=== PATIENT | female | born 1935 | race Caucasian/White ===

== ENCOUNTER 2017-10-05 10:03 | Emergency (ER) | payer MEDICARE, OTHER ==
--- NOTE | 2017-10-05 11:35 | ED Physician Documentation ---
History of Present Illness - Stated complaint Stated Complaint: SORE ON ANKLE - Chief complaint Chief Complaint: General - History obtained from History obtained from: Patient - History of Present Illness Timing: How many weeks ago (1) - Additonal information Additional information: The patient is an 81-year-old female who presents with a small sore on the lateral aspect of her left ankle. She first noticed it about 1 week ago and reports that it is better now than it was yesterday. She denies any traumatic injury. She is concerned because she had a spider bite in the past that became infected. She recently moved here and does not yet have a local primary physician. Review of Systems Constitutional: denies: Fever Skin: denies: Rash Musculoskeletal: reports: Extremity swelling (Slight swelling of the left ankle , which has improved.). 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 HEENT: Tonsil/Adenoidectomy - Present Medications Home Medications: Ambulatory Orders Medication Instructions Recorded Confirmed Digestive 8/L.acidoph/Pectin 10/05/17 10/05/17 [Digestive Enzymes Tablet] Thyroid,Pork [[place] Thyroid] 10/05/17 - Allergies Allergies/Adverse Reactions: Allergies Allergy/AdvReac Type Severity Reaction Status Date / Time sulfur dioxide Allergy Rash Verified 10/05/17 10:29 - Social History Does the pt smoke?: No PD ED PE NORMAL - Vitals Vital signs reviewed: Yes (Normal) - General General: Alert and oriented X 3, Well developed/nourished - HEENT HEENT: Atraumatic - Respiratory Respiratory: No respiratory distress - Derm Derm: No rash - Extremities Extremities: No edema, No calf tenderness / cord, Other (There is superficial abrasion at the lateral aspect of the left ankle, with no surrounding warmth or erythema. There is no significant tenderness to palpation. She has full range of motion of the ankle without tenderness. Distal neurovascular is intact.) - Neuro Neuro: Alert and oriented X 3, No motor deficit, No sensory deficit Results - Vitals Vitals: Oxygen O2 Source Room air PD MEDICAL DECISION MAKING - ED course Complexity details: considered differential, d/w patient ED course: Patient's presentation is most consistent with abrasion of the skin of the left lateral ankle. There is no evidence of cellulitis. The abrasion appears consistent with having scratched at the ankle. I do not think imaging studies are clinically indicated. Treatment in the emergency department included application of bacitracin antibiotic ointment topically, covered by a Band-Aid. I discussed with her the expected course of healing, symptomatic treatment, as well as potentially worrisome signs or symptoms that should prompt reevaluation. Departure - Departure Disposition: 01 Home, Self Care Clinical Impression: Excoriation Condition: Stable Instructions: ED Abrasion Comments: Apply antibiotic ointment to the sore on your ankle twice daily. Keep your left leg elevated as much of the time as possible. Follow-up with primary physician within 2 weeks if possible. Call to schedule an appointment. Return to the emergency department if you develop increasing redness, swelling, pain, or otherwise worsening symptoms. Discharge Date/Time: 10/05/17 11:39
[2017-10-05] MEDS ORDERED: BACITRACIN OINT TOP ONE (11:40)
[2017-10-05 11:42] VITALS: BP 127/77
== END 2017-10-05 11:39 | disposition home or self-care (01) ==
LOC: ED 10:03
DX: S90.512A Abrasion, left ankle, initial encounter (principal); X58.XXXA Exposure to other specified factors, initial encounter
CPT/HCPCS: 99283; A9270

== ENCOUNTER 2018-07-20 14:59 | Emergency (ER) | payer MEDICARE, OTHER ==
[2018-07-20 15:07] VITALS: BP 159/80
[2018-07-20] MEDS ORDERED: BACITRACIN OINT TOP STA (15:17)
--- NOTE | 2018-07-20 15:21 | ED Physician Documentation ---
PD HPI SKIN - Stated complaint Stated Complaint: SORE ON LEG - Chief complaint Chief Complaint: General - History obtained from History obtained from: Patient - History of Present Illness Timing - onset: How many days ago (4) Timing - duration: Days (4) Timing - details: Still present Location: LLE Quality / character: Itchy, Other (open sore) Contributing factors: Unknown Similar symptoms before: Has not had sx before - Additional information Additional information: The patient is an 82-year-old female who has had a sore on the calf of her left leg for the past 4 days. She is concerned because there has been no healing of the wound during that time. She denies any specific injury, but thinks it may be due to a spider bite or an insect sting. She does not have any pets. She is a recent arrival to [facility], and does not have a local physician. 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 HEENT: Tonsil/Adenoidectomy - Present Medications Home Medications: Ambulatory Orders Medication Instructions Recorded Confirmed Digestive 8/L.acidoph/Pectin 10/05/17 10/05/17 [Digestive Enzymes Tablet] Thyroid,Pork [[place] Thyroid] 10/05/17 - Allergies Allergies/Adverse Reactions: Allergies Allergy/AdvReac Type Severity Reaction Status Date / Time sulfur dioxide Allergy Rash Verified 07/20/18 15:04 - Social History Does the pt smoke?: No Smoking Status: Never smoker Does the pt drink ETOH?: No Does the pt have substance abuse?: No - Immunizations Immunizations are current?: No Immunizations: TDAP >10years/unknown - POLST Patient has POLST: No PD ED PE NORMAL - Vitals Vital signs reviewed: Yes (Initially hypertensive.) - General General: Alert and oriented X 3, Well developed/nourished - HEENT HEENT: Atraumatic - Respiratory Respiratory: No respiratory distress - Derm Derm: No rash - Extremities Extremities: No edema, Other (There is a nearly 1 cm diameter wound on the posterior aspect of the left calf. It is a superficial wound, consistent with spider bite. There is no tissue necrosis, and no significant surrounding erythema.) - Neuro Neuro: Alert and oriented X 3, No motor deficit, No sensory deficit Results - Vitals Vitals: Oxygen O2 Source Room air PD MEDICAL DECISION MAKING - ED course Complexity details: considered differential, d/w patient, d/w family ED course: Although it is not certain, the most likely etiology of the sore on the patient's calf is spider bite. There is no evidence of cellulitis, but rather just a localized reaction. I discussed with her and her the expected course of injury, topical antibiotic ointment and symptomatic treatment, as well as potentially worrisome signs or symptoms that should prompt reevaluation in the emergency department. Departure - Departure Disposition: 01 Home, Self Care Clinical Impression: Spider bite wound Qualifiers: Encounter type: initial encounter Injury intent: accidental or unintentional Qualified Code(s): T63.301A - Toxic effect of unspecified spider venom, accidental (unintentional), initial encounter Condition: Stable Instructions: ED Bite Spider Non Poisonous Comments: Apply antibiotic ointment to the wound twice daily, and cover the wound with a Band-Aid. Keep your left leg elevated as much the time as possible. Return to the emergency department if you develop increasing redness, swelling, pain, or otherwise worsening symptoms. Discharge Date/Time: 07/20/18 15:38
[2018-07-20] MEDS ORDERED: BACITRACIN OINT TOP ONE (15:22)
== END 2018-07-20 15:38 | disposition home or self-care (01) ==
LOC: ED 14:59
DX: T63.301A Toxic effect of unspecified spider venom, accidental (unintentional), initial encounter (principal); E03.9 Hypothyroidism, unspecified
CPT/HCPCS: 99282; A9270

== ENCOUNTER 2018-09-11 06:37 | Emergency (ER) | payer MEDICARE, OTHER ==
[2018-09-11 07:01] LABS: BASOPHILS # (AUTO) 0.1 10^3/uL (0.0-0.1); BASOPHILS % (AUTO) 0.4 %; EOSINOPHILS # (AUTO) 0.2 10^3/uL (0.0-0.7); EOSINOPHILS % (AUTO) 1.9 %; HGB - HEMOGLOBIN 15.1 g/dL (12.0-16.0); LYMPHOCYTES % (AUTO) 7.6 %; MEAN CORPUSCULAR HEMOGLOBIN 30.3 pg (27.0-31.0); MEAN CORPUSCULAR HGB CONC 34.1 g/dL (32.0-36.0); MEAN CORPUSCULAR VOLUME 88.7 fL (81.0-99.0); MEAN PLATELET VOLUME 9.7 fL (7.9-10.8); MONOCYTES # (AUTO) 0.6 10^3/uL (0.0-1.0); MONOCYTES % (AUTO) 4.9 %; NEUTROPHILS # (AUTO) 10.6 10^3/uL (1.5-6.6); NEUTROPHILS % (AUTO) 85.2 %; PLT - PLATELET COUNT 221 10^3/uL (130-450); RED BLOOD COUNT 4.99 10^6/uL (4.20-5.40); RED CELL DISTRIBUTION WIDTH 14.7 % (12.0-15.0); WHITE BLOOD COUNT 12.5 x10^3/uL (4.8-10.8)
--- NOTE | 2018-09-11 07:09 | ED Physician Documentation ---
PD HPI ABD PAIN - Stated complaint Stated Complaint: ABD PX - Chief complaint Chief Complaint: Abd Pain - History obtained from History obtained from: Patient - History of Present Illness Timing - onset: Yesterday Timing - duration: Days (1) Timing - details: Abrupt onset, Still present Quality: Cramping, Aching, Fullness/distended, Pain Location: All over / everywhere (more to the lower and mid abdomen.) Radiation: No: Chest, Lower back Associated symptoms: Nausea, Constipation (states no BM for 2-3 days but was regular prior to that.). No: Fever, Vomiting, Diarrhea Similar symptoms before: No diagnosis (sparse episodes 2-3 times in the past lasting few hours or a day. This feels worse. Had an episode few years ago treated in ER and was told had a "twist" but improved with meds. Prior surgeries of CCY and hysterectomy.) Recently seen: Not recently seen Review of Systems Constitutional: denies: Fever, Chills, Myalgias Nose: denies: Rhinorrhea / runny nose, Congestion Throat: denies: Sore throat Respiratory: denies: Cough GI: reports: Abdominal Pain, Abdominal Swelling, Nausea, Constipation. denies: Vomiting, Diarrhea : denies: Dysuria, Frequency Musculoskeletal: denies: Neck pain, Back pain Neurologic: reports: Generalized weakness. 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 HEENT: Tonsil/Adenoidectomy - Present Medications Home Medications: Ambulatory Orders Medication Instructions Recorded Confirmed Digestive 8/L.acidoph/Pectin 10/05/17 10/05/17 [Digestive Enzymes Tablet] Thyroid,Pork [[place] Thyroid] 10/05/17 Hydrocodone/Acetaminophen [[place] 1 each PO Q6H PRN #15 tablet 09/11/18 5-325 Tablet] Naproxen 375 mg PO BID #20 tablet 09/11/18 Ondansetron Odt [Zofran] 4 mg TL Q6H PRN #10 tablet 09/11/18 Polyethylene Glycol 3350 [Miralax] 17 gm PO DAILY PRN #1 bottle 09/11/18 - Allergies Allergies/Adverse Reactions: Allergies Allergy/AdvReac Type Severity Reaction Status Date / Time sulfur dioxide Allergy Rash Verified 07/20/18 15:04 - Social History Does the pt smoke?: No Smoking Status: Never smoker Does the pt drink ETOH?: No Does the pt have substance abuse?: No - Immunizations Immunizations are current?: No Immunizations: TDAP >10years/unknown - POLST Patient has POLST: No PD ED PE NORMAL - Vitals Vital signs reviewed: Yes - General General: Alert and oriented X 3, No acute distress, Well developed/nourished - Neck Neck: Supple, no meningeal sign, No adenopathy - Cardiac Cardiac: RRR, No murmur - Respiratory Respiratory: Clear bilaterally - Abdomen Abdomen: Soft, No organomegaly, Other (moderate distension with general tenderness and increased bowel sounds. ). No: Normal bowel sounds - Female Female : Deferred - Rectal Rectal: Deferred - Back Back: No CVA TTP - Derm Derm: Normal color - Extremities Extremities: No deformity, No tenderness to palpate - Neuro Neuro: Alert and oriented X 3, No motor deficit, Normal speech Results - Vitals Vitals: Vital Signs - 24 hr 09/11/18 09/11/18 06:40 10:14 Temperature 36.7 C Heart Rate 94 109 H Respiratory 18 16 Rate Blood Pressure 163/81 H 110/53 L O2 Saturation 96 98 Oxygen O2 Source Room air - Labs Labs: Laboratory Tests 09/11/18 09/11/18 09/11/18 06:50 06:50 08:55 WBC 12.5 H RBC 4.99 Hgb 15.1 Hct 44.3 MCV 88.7 MCH 30.3 MCHC 34.1 RDW 14.7 Plt Count 221 MPV 9.7 Neut # (Auto) 10.6 H Lymph # (Auto) 1.0 L Collier # (Auto) 0.6 Eos # (Auto) 0.2 Baso # (Auto) 0.1 Absolute Nucleated RBC 0.00 Nucleated RBC % 0.0 Sodium 139 Potassium 3.6 Chloride 104 Carbon Dioxide 24 Anion Gap 11.0 BUN 18 Creatinine 0.6 Estimated GFR (MDRD) 96 Glucose 157 H Calcium 9.7 Total Bilirubin 0.7 AST 26 ALT 21 Alkaline Phosphatase 74 Total Protein 6.8 Albumin 4.1 Globulin 2.7 Albumin/Globulin Ratio 1.5 Lipase 29 Urine Color YELLOW Urine Clarity CLEAR Urine pH 6.5 Ur Specific [place] <=1.005 Urine Protein NEGATIVE Urine Glucose (UA) NEGATIVE Urine Ketones NEGATIVE Urine Occult Blood NEGATIVE Urine Nitrite NEGATIVE Urine Bilirubin NEGATIVE Urine Urobilinogen 0.2 (NORMAL) Ur Leukocyte Esterase NEGATIVE Ur Microscopic Review NOT INDICATED Urine Culture Comments NOT INDICATED - Rads (name of study) abd CT Radiology: Prelim report reviewed (Incomplete small bowel obstruction with transition from dilated to decompressed at the ileum. No free fluid. No signs of focal infection.), See rad report PD MEDICAL DECISION MAKING - ED course Complexity details: re-evaluated patient (She is feeling improved with IV fluids and medications. She still is moderately distended but not hurting much. I conveyed the findings of the partial bowel obstruction. We talked about treatment plan of fluids nausea medicine pain medicine and time to see if it improves. I offered to call the hospitalist about being in the hospital. She asked about treatment at home and shared decision was that we can try going home with medication and see if she has resolution within 12-24 hours and if not to return.), considered differential, d/w patient, d/w family (spouse) Departure - Departure Disposition: 01 Home, Self Care Clinical Impression: Small bowel obstruction, partial Abdominal pain Qualifiers: Abdominal location: generalized Qualified Code(s): R10.84 - Generalized abdominal pain Condition: Stable Record reviewed to determine appropriate education?: Yes Instructions: Abdominal Pain, ED Abdominal Pain Adhesions Prescriptions: Hydrocodone/Acetaminophen [[place] 5-325 Tablet] 1 each PO Q6H PRN #15 tablet PRN Reason: Pain Naproxen 375 mg PO BID #20 tablet Ondansetron Odt [Zofran] 4 mg TL Q6H PRN #10 tablet PRN Reason: Nausea / Vomiting Polyethylene Glycol 3350 [Miralax] 17 gm PO DAILY PRN #1 bottle PRN Reason: Constipation Comments: The CT scan shows a partial blockage of the small intestine. This is commonly from some twisting or knuckling around the old scar tissue. Often it will unkink and improve with clear liquids and pain medicine and time of a day or two. Liquid only for the next day to two. You could use a mild stool softener once or twice daily (MiraLAX) to have soft stool. Use naproxen anti-inflammatory twice daily with something to drink. Add hydrocodone if needed for pain and ondansetron if needed for nausea. Recheck if this is not improved well in the next day or 2 return sooner if worsening. Discharge Date/Time: 09/11/18 10:14
[2018-09-11 07:15] LABS: ALBUMIN 4.1 g/dL (3.2-5.5); ALBUMIN/GLOBULIN RATIO 1.5 (1.0-2.2); BILIRUBIN,TOTAL 0.7 mg/dL (0.2-1.0); CALCIUM 9.7 mg/dL (8.5-10.3); CREATININE 0.6 mg/dL (0.4-1.0); TOTAL PROTEIN 6.8 g/dL (6.7-8.2)
[2018-09-11] MEDS ORDERED: SODIUM CHLORIDE 0.9% 1,000 ML IV ONE (07:19)
[2018-09-11] MEDS ORDERED: MORPHINE 10 MG/ML VIAL IVP STA (07:19)
[2018-09-11] MEDS ORDERED: ONDANSETRON 4 MG/2 ML VIAL IVP STA (07:19)
[2018-09-11] MEDS ORDERED: IOVERSOL 320 100 ML VIAL IVP ONE ×2 (07:55→11:20)
--- NOTE | 2018-09-11 08:37 | CT Report ---
Reason: left/lower abd pain for 2 days Procedure Date: 09/11/2018 Accession Number: [id number] / [id number] Procedure: CT - Abdomen/Pelvis W CPT Code: FULL RESULT: EXAM: CT ABDOMEN AND PELVIS EXAM DATE: 09/11/2018 08:05 AM. CLINICAL HISTORY: Left/lower abd pain for 2 days. COMPARISONS: None. TECHNIQUE: Routine helical CT imaging was performed through the abdomen and pelvis. IV contrast: OPTI 320 100mL. Enteric contrast: No. Reconstructions: Coronal and sagittal. In accordance with CT protocol optimization, one or more of the following dose reduction techniques were utilized for this exam: automated exposure control, adjustment of mA and/or KV based on patient size, or use of iterative reconstructive technique. FINDINGS: Lung Bases: Unremarkable. Liver: Normal. No masses. Gallbladder/Bile Ducts: Post cholecystectomy. Dilated common bile duct 1.3 cm with intrahepatic ductal dilatation Spleen: Normal. Pancreas: Normal. Adrenal Glands: Normal. Kidneys: Right kidney unremarkable. Left kidney parapelvic cysts. Peritoneal Cavity/Bowel: Small bowel dilatation measuring up to 2.8 cm there appears to be a transition in the ileum in right pelvis from distended small bowel to decompressed distal ileum. (3, 52) ( 5, 14) No retroperitoneal adenopathy. No free fluid in the abdomen. Diverticulosis. There are fluid-filled loops of colon. Pelvic Organs: Normal. The bladder and visualized pelvic organs are within normal limits. Vasculature: No aneurysms or other significant abnormality. Bones: No significant abnormality. Other: None. IMPRESSION: 1. Incomplete or early low-grade small bowel obstruction. Small bowel loops maximal 2.8 cm. 2. Diverticulosis. 3. Dilated common bile duct with intrahepatic ductal dilatation RADIA
[2018-09-11 09:01] LABS: BILIRUBIN,URINE NEGATIVE (NEGATIVE); GLUCOSE, URINE (UA) NEGATIVE (NEGATIVE); KETONES,URINE (UA) NEGATIVE (NEGATIVE); LEUKOCYTE ESTERASE, URINE NEGATIVE (NEGATIVE); NITRITE,URINE NEGATIVE (NEGATIVE); OCCULT BLOOD,URINE NEGATIVE (NEGATIVE); PH,URINE 6.5 PH (5.0-7.5); PROTEIN,URINE NEGATIVE (NEGATIVE); UROBILINOGEN,URINE 0.2 (NORMAL) E.U./dL (NORMAL)
[2018-09-11 09:02] LABS: CLARITY,URINE CLEAR (CLEAR)
[2018-09-11] MEDS ORDERED: KETOROLAC 30 MG/ML VIAL IVP STA (09:27)
[2018-09-11 10:15] VITALS: BP 110/53
== END 2018-09-11 10:14 | disposition home or self-care (01) ==
LOC: ED 06:37
DX: K56.600 Partial intestinal obstruction, unspecified as to cause (principal); R10.84 Generalized abdominal pain; K57.90 Diverticulosis of intestine, part unspecified, without perforation or abscess without bleeding; E03.9 Hypothyroidism, unspecified; Z98.890 Other specified postprocedural states
CPT/HCPCS: 36415; 74177; 80053; 81003; 83690; 85025; 96361; 96374; 96375; 99283; 99284; Q9967; 81001; 87086

== ENCOUNTER 2019-06-13 20:37 | Emergency (ER) | payer MEDICARE, OTHER ==
[2019-06-13 21:08] VITALS: BP 159/71
--- NOTE | 2019-06-13 21:10 | ED Physician Documentation ---
PD HPI UPPER EXT INJURY - Stated complaint Stated Complaint: GLF/WRIST INJ/DIZZY AFTER THE FALL - Chief complaint Chief Complaint: Neuro - History obtained from History obtained from: Patient - History of Present Illness Location: Left (She turned around too quickly and fell on an outstretched left wrist. 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 Nothing new or different there. No chest pain or trouble breathing. No head injury. 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 HEENT: Tonsil/Adenoidectomy - Present Medications Home Medications: Ambulatory Orders Medication Instructions Recorded Confirmed Digestive 8/L.acidoph/Pectin 10/05/17 10/05/17 [Digestive Enzymes Tablet] Thyroid,Pork [[place] Thyroid] 10/05/17 Hydrocodone/Acetaminophen [[place] 1 each PO Q6H PRN #15 tablet 09/11/18 5-325 Tablet] Naproxen 375 mg PO BID #20 tablet 09/11/18 Ondansetron Odt [Zofran] 4 mg TL Q6H PRN #10 tablet 09/11/18 Polyethylene Glycol 3350 [Miralax] 17 gm PO DAILY PRN #1 bottle 09/11/18 Hydrocodone/Acetaminophen 1 - 2 each PO Q6H PRN #14 tablet 06/13/19 [Hydrocodon-Acetaminophen 5-325] - Allergies Allergies/Adverse Reactions: Allergies Allergy/AdvReac Type Severity Reaction Status Date / Time sulfur dioxide Allergy Rash Verified 06/13/19 20:51 - Social History Does the pt smoke?: No Smoking Status: Never smoker Does the pt drink ETOH?: No Does the pt have substance abuse?: No - Immunizations Immunizations are current?: No Immunizations: TDAP >10years/unknown - POLST Patient has POLST: No PD ED PE NORMAL - Vitals Vital signs reviewed: Yes - General General: Alert and oriented X 3, No acute distress - HEENT HEENT: PERRL, EOMI - Neck Neck: Supple, no meningeal sign, No bony TTP - Cardiac Cardiac: RRR (with freq extrasystoles), No murmur - Respiratory Respiratory: No respiratory distress, Clear bilaterally - Abdomen Abdomen: Non tender - Back Back: No CVA TTP, No spinal TTP - Extremities Extremities: Other (Swelling of the left wrist dorsally with limited range of motion but not 0. No obvious deformity.) - Neuro Neuro: Alert and oriented X 3, Normal speech - Psych Psych: Normal mood, Normal affect Results - Vitals Vitals: Vital Signs - 24 hr 06/13/19 06/13/19 20:40 21:07 Temperature 36.8 C Heart Rate 81 80 Respiratory 18 15 Rate Blood Pressure 172/80 H 159/71 H O2 Saturation 98 98 Oxygen O2 Source Room air Procedures - Splint (location) LUE Splint applied by: Physician Type of splint: Fiberglass, Long arm, Sugar tong Other: Sling provided Departure - Departure Disposition: 01 Home, Self Care Clinical Impression: Fracture, Colles, left, closed Qualifiers: Encounter type: initial encounter Qualified Code(s): S52.532A - Colles' fracture of left radius, initial encounter for closed fracture Condition: Good Record reviewed to determine appropriate education?: Yes Instructions: ED Fx Forearm Radius Ulna Redu Requ Prescriptions: Hydrocodone/Acetaminophen [Hydrocodon-Acetaminophen 5-325] 1 - 2 each PO Q6H PRN #14 tablet PRN Reason: pain Comments: You need to follow-up with an orthopedic surgeon within a week, week and a half at most. Call the [facility] tomorrow for an appointment. The phone number for the office in [place] is [phone], the one in [facility] is [phone], the one in [place] is [phone]. Return for new or worsening symptoms. Keep the splint on and dry, do not remove it. Do not drink or drive while taking narcotic pain medication. Note that many narcotic pain relievers also contain Tylenol/acetaminophen. Please ensure that your total dose of acetaminophen from all sources does not exceed 3 g (3000 mg) per day. You may get constipated while on this medication. Take a stool softener such as Colace twice a day while you are on it. Also add an [id number] laxative such as senna or MiraLAX on any day that you do not have a bowel movement. If you received a narcotic pain medication or sedative while in the emergency department, do not drive for the next 24 hours. Discharge Date/Time: 06/13/19 22:07
[2019-06-13] MEDS: HYDROcod/ACETAM 5/325 MG TABLET PO STA (21:19)
--- NOTE | 2019-06-13 21:44 | XRAY Report ---
Reason: injury from fall Procedure Date: 06/13/2019 Accession Number: [id number] / [id number] Procedure: XR - Wrist 3 View LT CPT Code: Final Report FULL RESULT: EXAM: LEFT WRIST RADIOGRAPHY EXAM DATE: 06/13/2019 09:20 PM. CLINICAL HISTORY: Trauma, pain. COMPARISON: None. TECHNIQUE: 3 views. FINDINGS: Bones: Osteopenia. Nondisplaced impacted transverse fracture of distal radial metaphysis with slight apex volar angulation. Associated nondisplaced fracture of ulnar styloid process. Otherwise unremarkable. Joints: Marked degenerative changes in the first CMC joint with mild subluxation. Possible slight widening of scapholunate space compared to the rest of the carpus. Soft Tissues: Soft tissue swelling. IMPRESSION: 1. Nondisplaced distal radius fracture with associated ulnar styloid process fracture. 2. Degenerative changes; possible scapholunate dissociation. RADIA
[2019-06-13] MEDS: HYDROcod/ACET 5/325 Prepack 4 PO STA (22:02)
== END 2019-06-13 22:07 | disposition home or self-care (01) ==
LOC: ED 20:37
DX: S52.532A Colles' fracture of left radius, initial encounter for closed fracture (principal); S52.615A Nondisplaced fracture of left ulna styloid process, initial encounter for closed fracture; W18.39XA Other fall on same level, initial encounter; R42 Dizziness and giddiness; I49.9 Cardiac arrhythmia, unspecified
CPT/HCPCS: 29105